=== PATIENT | female | born 1995 | race Two or more races ===

== ENCOUNTER 2021-05-01 16:05 | Emergency (ER) | payer SELFPAY ==
[~2021-05-01] VITALS: Ht 167.6 cm; Wt 90.7 kg
[2021-05-01] MEDS ORDERED: methylPREDNISolone SOD SUCC 125 MG/2 ML VL ONE (16:07)
[2021-05-01] MEDS ORDERED: diphenhdrAMINE HCL 50 MG/1 ML VL ONE (16:08)
[2021-05-01] MEDS ORDERED: SODIUM CHLORIDE 0.9% 1,000 ML IV ONE (16:15)
[2021-05-01] MEDS ORDERED: diphenhdrAMINE HCL 50 MG/1 ML VL IV ONE (16:15)
[2021-05-01] MEDS ORDERED: methylPREDNISolone SOD SUCC 125 MG/2 ML VL IV ONE (16:15)
[2021-05-01] MEDS ORDERED: METH4PAK PO (18:05)
[2021-05-01] MEDS ORDERED: DIPH25CA66 PO (18:05)
[2021-05-01 18:24] VITALS: BP 126/69
== END 2021-05-01 18:39 | disposition home or self-care (01) ==
LOC: ER 16:05
DX: T78.40XA Allergy, unspecified, initial encounter (principal); X58.XXXA Exposure to other specified factors, initial encounter; Z90.49 Acquired absence of other specified parts of digestive tract
CPT/HCPCS: 96361; 96374; 96375; 99284; J1200; J2930; J7030

== ENCOUNTER 2022-08-14 17:43 | Emergency (ER) | payer MEDICAID, OTHER ==
[~2022-08-14] VITALS: Ht 170.2 cm; Wt 79.5 kg
[~2022-08-14 17:43] MED LIST: DIPH25CA66 PO; METH4PAK PO
[2022-08-14] MEDS ORDERED: KETOROLAC TROMETH 60MG/2ML VIAL IM ONE (20:45)
[2022-08-14] MEDS ORDERED: IBUP800T27 PO (20:48)
[2022-08-14 21:41] VITALS: BP 131/71
== END 2022-08-14 21:46 | disposition home or self-care (01) ==
LOC: ER 17:43
DX: S82.61XA Displaced fracture of lateral malleolus of right fibula, initial encounter for closed fracture (principal); S83.92XA Sprain of unspecified site of left knee, initial encounter; W01.0XXA Fall on same level from slipping, tripping and stumbling without subsequent striking against object, initial encounter; Y93.89 Activity, other specified; Y92.89 Other specified places as the place of occurrence of the external cause; Y99.8 Other external cause status
CPT/HCPCS: 29515; 73562; 73610; 96372; 99284; J1885; 96374